=== PATIENT | female | born 1990 | race Caucasian/White ===

== ENCOUNTER 2016-12-05 10:07 | Emergency (ER) | payer OTHER ==
[~2016-12-05] VITALS: Ht 157.5 cm; Wt 77.1 kg
--- OUTSIDE RECORDS SUMMARY | 2016-12-05 10:17 | XMS REPORT | Continuity of Care Document ---
Author Author Interface Organization Interface Address Unknown Phone Unavailable Problems Problem Status Onset Date Classification Date Reported Comments Source No data available for this section Problem 02/27/2014 [facility] Acute pharyngitis 2013 Diagnosis 02/27/2014 [facility] Toothache (finding) 2015 Diagnosis 12/19/2015 [employer] Allergic rhinitis (disorder) 12/15/2015 Diagnosis 2015 [employer] Sore throat symptom (finding) 12/15/2015 Diagnosis 2015 [employer] Medications Medication Details Route Status Patient Instructions Ordering Provider Order Date Source No Known Medications No known medications Active [employer] Allergies, Adverse Reactions, Alerts Substance Category Reaction Severity Reaction type Status Date Reported Comments Source Immunizations Immunization Date Given Site Status Last Updated Comments Source No data available for this section No data available for this section [facility] No data available for this section No data available for this section [employer] Results Order Name Results Value Reference Range Date Interpretation Comments Source Vital Signs Vital Sign Value Date Comments Source Encounters Location Location Details Encounter Type Encounter Number Reason For Visit Attending Provider ADM Date DC Date Status Source [facility] [id number] Clinic ( Outpatient) [id number] Dawson Harper 02/23/2014 Active [employer] [facility] [id number] Clinic ( Outpatient) [id number] Peyman Herman 12/15/2015 Active [employer] [facility] [id number] Dawson Harper 02/23/2014 02/24/2014 [facility] [place] [id number] Peyman Herman 12/15/2015 12/16/2015 [employer] Procedures Procedure Code Date Perfomer Comments Source No data available for this section [employer].
--- NOTE | 2016-12-05 10:46 | ED Syncope ---
General Chief Complaint: Dizziness/Syncope Stated Complaint: SYNCOPAL EPISODE Nursing Triage Note: AMB TO ROOM REPORTS WENT TO [facility] FELT LIKE SHE NEEDED TO BE SEEN IN ER. SINCE FRIDAY HAS HAD SINUS PRESSUE AND PAIN FELT DIZZY WITH IT. REPORT TODAY STILL NOT FEELING WELL AND PASSED OUT. Source of Information: Patient Exam Limitations: No Limitations History of Present Illness Time Seen by Provider: 10:44 Initial Comments To ER with a near syncopal event that occurred today. She got up to go the bathroom felt lightheaded in the next thing She knew she was laying in her bed. She did not fall and hit the floor she is uncertain how she made it to her bed. She's been having headache for the past 2-3 days and believes it to be sinus congestion so she took [id number] decongestants and did have some relief. She reports rhinorrhea with a nonproductive cough but no fevers or chills. She is been nauseous and not eating but she has been drinking. Denies any palpitations or shortness of breath. Denies any unilateral leg swelling. Timing/Prior Episodes: No Prior History Precipitating Factors: None Loss of Consciousness: No Loss of Consciousness Current Symptoms: Headache Allergies and Home Medications Allergies Coded Allergies: No Known Drug Allergies (Unverified , 12/05/16) Home Medications No Active Prescriptions or Reported Meds Constitutional: see HPI EENTM: nose congestion see HPI Respiratory: see HPI cough Genitourinary: no symptoms reported Musculoskeletal: no symptoms reported Skin: no symptoms reported Psychiatric/Neurological: See HPI Headache Past Hzhjzzo-Cbfyvv-Zscgic Hx Patient Social History Alcohol Use: Denies Use Recreational Drug Use: No Smoking Status: Current Everyday Smoker Recent Foreign Travel: No Contact w/Someone Who Travel: No Recent Infectious Disease Expo: No Recent Hopitalizations: No Seasonal Allergies Seasonal Allergies: No Surgeries HX Surgeries: Yes Surgeries: Nose Respiratory Hx Respiratory Disorders: No Cardiovascular Hx Cardiac Disorders: No Neurological Hx Neurological Disorders: No Genitourinary Hx Genitourinary Disorders: No Gastrointestinal Hx Gastrointestinal Disorders: No Musculoskeletal Hx Musculoskeletal Disorders: No Endocrine Hx Endocrine Disorders: No Cancer Hx Cancer: No Psychosocial Hx Psychiatric Problems: No Physical Exam Vital Signs Vital Sign - Last 12Hours 12/05/16 10:16 Temp 98.6 Pulse 94 Resp 18 B/P 110/75 Pulse Ox 100 O2 Delivery Room Air Capillary Refill : Less Than 3 Seconds General Appearance: No Apparent Distress WD/WN HEENT: PERRL/EOMI TMs Normal Neck: Full Range of Motion Normal Inspection Other (left submandibular lymphadenopathy mild) Respiratory: No Accessory Muscle Use No Respiratory Distress Extremities: Normal Capillary Refill Normal Inspection Neurologic/Psychiatric: Alert Oriented x3 No Motor/Sensory Deficits Cranial Nerves: Normal Hearing, Normal Speech, PERRL Coordination/Gait: Normal Finger to Nose, Normal Gait Progress/Results/Core Measures Results/Orders Lab Results Laboratory Tests Test 12/05/16 10:39 12/05/16 10:57 Range/Units Alanine Aminotransferase (ALT/SGPT) 15 0-55 U/L Albumin 4.3 3.2-4.5 G/DL Alkaline Phosphatase 54 40-136 U/L Anion Gap 9 5-14 MMOL/L Aspartate Amino Transf (AST/SGOT) 20 5-34 U/L BUN/Creatinine Ratio 14 Basophils # (Auto) 0.0 0.0-0.1 10^3/uL Basophils (%) (Auto) 0 0-10 % Blood Urea Nitrogen 11 7-18 MG/DL Calcium Level 8.9 8.5-10.1 MG/DL Carbon Dioxide Level 26 21-32 MMOL/L Chloride Level 103 98-107 MMOL/L Creatinine 0.81 0.60-1.30 MG/DL D-Dimer 0.40 0.00-0.49 UG/ML Eosinophils # (Auto) 0.0 0.0-0.3 10^3/uL Eosinophils (%) (Auto) 1 0-10 % Estimat Glomerular Filtration Rate > 60 Glucose Level 67 L 70-105 MG/DL Hematocrit 42 35-52 % Hemoglobin 14.4 11.5-16.0 G/DL Lymphocytes # (Auto) 1.0 1.0-4.0 X 10^3 Lymphocytes (%) (Auto) 36 12-44 % Mean Corpuscular Hemoglobin 31 25-34 PG Mean Corpuscular Hemoglobin Concent 34 32-36 G/DL Mean Corpuscular Volume 91 80-99 FL Mean Platelet Volume 10.9 H 7.4-10.4 FL Monocytes # (Auto) 0.5 0.0-1.0 X 10^3 Monocytes (%) (Auto) 17 H 0-12 % Neutrophils # (Auto) 1.3 L 1.8-7.8 X 10^3 Neutrophils (%) (Auto) 46 42-75 % Platelet Count 177 130-400 10^3/uL Potassium Level 3.6 3.6-5.0 MMOL/L Red Blood Count 4.62 4.35-5.85 10^6/uL Red Cell Distribution Width 12.3 10.0-14.5 % Sodium Level 138 135-145 MMOL/L Total Bilirubin 0.2 0.1-1.0 MG/DL Total Protein 7.0 6.4-8.2 G/DL White Blood Count 2.9 L 4.3-11.0 10^3/uL Ur Tricyclic Antidepressants Screen NEGATIVE NEGATIVE Urine Amphetamines Screen NEGATIVE NEGATIVE Urine Bacteria LARGE H /HPF Urine Barbiturates Screen NEGATIVE NEGATIVE Urine Benzodiazepines Screen NEGATIVE NEGATIVE Urine Bilirubin NEGATIVE NEGATIVE Urine Cannabinoids Screen NEGATIVE NEGATIVE Urine Casts NONE /LPF Urine Clarity SLIGHTLY CLOUDY Urine Cocaine Screen NEGATIVE NEGATIVE Urine Color YELLOW Urine Crystals NONE /LPF Urine Culture Indicated YES Urine Glucose (UA) NEGATIVE NEGATIVE Urine Ketones NEGATIVE NEGATIVE Urine Leukocyte Esterase 1+ H NEGATIVE Urine Methadone Screen NEGATIVE NEGATIVE Urine Methamphetamines Screen NEGATIVE NEGATIVE Urine Mucus SMALL H /LPF Urine Nitrite NEGATIVE NEGATIVE Urine Opiates Screen NEGATIVE NEGATIVE Urine Oxycodone Screen NEGATIVE NEGATIVE Urine Phencyclidine Screen NEGATIVE NEGATIVE Urine Propoxyphene Screen NEGATIVE NEGATIVE Urine Protein 2+ H NEGATIVE Urine RBC NONE /HPF Urine RBC (Auto) NEGATIVE NEGATIVE Urine Specific [place] 1.020 1.016-1.022 Urine Squamous Epithelial Cells 5-10 /HPF Urine Urobilinogen NORMAL NORMAL MG/DL Urine WBC 2-5 /HPF Urine pH 6 5-9 My Orders Orders-MICHELLE MCCARTY APRN Fibrin Degradation Products (12/05/16 10:28) Ekg Tracing (12/05/16 10:28) Cbc With Automated Diff (12/05/16 10:28) Comprehensive Metabolic Panel (12/05/16 10:28) Ua Culture If Indicated (12/05/16 10:28) Drug Screen Stat (Urine) (12/05/16 10:28) Ns Iv 1000 Ml (Sodium Chloride 0.9%) (12/05/16 11:00) Urine Bedside (12/05/16 10:46) Ct Head Wo (12/05/16 10:46) Urine Culture (12/05/16 10:57) Vital Signs/I&O Vital Sign - Last 12Hours 12/05/16 10:16 Temp 98.6 Pulse 94 Resp 18 B/P 110/75 Pulse Ox 100 O2 Delivery Room Air Blood Pressure Mean: 87 Departure Impression Impression: Primary Impression: Viral syndrome Additional Impression: Near syncope Disposition: 01 HOME, SELF-CARE Condition: Stable Departure-Patient Inst. Decision time for Depature: 11:29 Referrals: NO,LOCAL PHYSICIAN (PCP/Family) Primary Care Physician Patient Instructions: Syncope (Fainting) (DC) Add. Discharge Instructions: 1. Return to ER for any concerns 2. Follow-up with your doctor next week. Your white blood cell count was a little low at 2.9. This should be rechecked in a week or 2 3. All discharge instructions reviewed with patient and/or family. Voiced understanding. Scripts D-Methorphan Hb/P-Epd HCl/Bpm (Bromfed Dm Cough Syrup)118 Ml Syrup5 Ml PO Q6H PRN COUGH #120 ML Prov:MICHELLE MCCARTY APRN 12/05/16 MICHELLE MCCARTY APRN Dec 05, 2016 10:46
[2016-12-05 10:49] LABS: BASOPHILS % (AUTO) 0 % (0-10); EOSINOPHILS % (AUTO) 1 % (0-10); LYMPHOCYTES % (AUTO) 36 % (12-44); MEAN CORPUSCULAR HEMOGLOBIN 31 PG (25-34); MEAN CORPUSCULAR HGB CONC 34 G/DL (32-36); MEAN CORPUSCULAR VOLUME 91 FL (80-99); MEAN PLATELET VOLUME 10.9 FL (7.4-10.4); MONOCYTES # (AUTO) 0.5 X 10^3 (0.0-1.0); MONOCYTES % (AUTO) 17 % (0-12); NEUTROPHILS # (AUTO) 1.3 X 10^3 (1.8-7.8); NEUTROPHILS % (AUTO) 46 % (42-75); PLATELET COUNT 177 10^3/uL (130-400); RED BLOOD COUNT 4.62 10^6/uL (4.35-5.85); RED CELL DISTRIBUTION WIDTH 12.3 % (10.0-14.5); WHITE BLOOD COUNT 2.9 10^3/uL (4.3-11.0)
[2016-12-05] MEDS ORDERED: NS IV 1000 ML 1,000 ML IV SCH (11:00)
[2016-12-05 11:07] LABS: ALANINE AMINOTRANSFERASE 15 U/L (0-55); ALBUMIN 4.3 G/DL (3.2-4.5); ANION GAP 9 MMOL/L (5-14); ASPARTATE AMINO TRANSFERASE 20 U/L (5-34); BILIRUBIN,TOTAL 0.2 MG/DL (0.1-1.0); BLOOD UREA NITROGEN 11 MG/DL (7-18); BUN/CREATININE RATIO 14; CALCIUM 8.9 MG/DL (8.5-10.1); CARBON DIOXIDE 26 MMOL/L (21-32); CHLORIDE 103 MMOL/L (98-107); CREATININE SERUM 0.81 MG/DL (0.60-1.30); GFR ESTIMATED > 60; GLUCOSE 67 MG/DL (70-105); POTASSIUM 3.6 MMOL/L (3.6-5.0); SODIUM 138 MMOL/L (135-145)
[2016-12-05 11:09] LABS: BILIRUBIN,URINE NEGATIVE (NEGATIVE); KETONES,URINE NEGATIVE (NEGATIVE); LEUKOCYTE ESTERASE ,URINE 1+ (NEGATIVE); NITRITE,URINE NEGATIVE (NEGATIVE); PH,URINE 6 (5-9); PROTEIN,URINE 2+ (NEGATIVE); UROBILINOGEN,URINE NORMAL (NORMAL)
--- NOTE | 2016-12-05 11:25 | Diagnostic Imaging Report ---
PROCEDURE: CT head without contrast. TECHNIQUE: Multiple contiguous axial images were obtained through the brain without the use of intravenous contrast. INDICATION: Syncope, headache The ventricles are normal in size, shape and position. There are no masses or hemorrhages. There are no extra-axial fluid collections. Impression: Negative CT head Dictated by: Dictated on workstation # [id number]
[2016-12-05] MEDS ORDERED: D-ME118S33 PO (11:31)
[2016-12-05 11:49] VITALS: BP 110/68
== END 2016-12-05 11:49 | disposition home or self-care (01) ==
LOC: EDUNIT# 10:07 → ER 10:13
DX: B34.9 Viral infection, unspecified (principal); F17.210 Nicotine dependence, cigarettes, uncomplicated
CPT/HCPCS: 36415; 70450; 80053; 80306; 81000; 84703; 85025; 85379; 87088; 93005; 96360